=== PATIENT | female | born 1965 | race Caucasian/White ===

== ENCOUNTER → 2023-12-18 06:21 | Day surgery (SDC) | payer BC, SELFPAY | LOC: GI 06:21 | PROVIDERS: ATTENDING PHYSICIAN Internal Medicine Gastroenterology | DX: R13.10 Dysphagia, unspecified (principal); K44.9 Diaphragmatic hernia without obstruction or gangrene; K21.00 Gastro-esophageal reflux disease with esophagitis, without bleeding | CPT/HCPCS: 43239; 88305 ==

== ENCOUNTER 2024-02-24 22:12 | Emergency (ER) | payer BC, SELFPAY ==
[2024-02-24 22:19] VITALS: BP 153/89
[2024-02-24 22:32] LABS: % Basophils 0.3 % (0-2); % Eosinophils 1.2 % (0-6); % Immature Granulocytes 0.3 % (0-0.5); % Lymphocytes 39.9 % (20.5-51.1); % Monocytes 7.2 % (1.7-9.3); % Neutrophils 51.1 % (42.2-75.2); Absolute Eosinophils 0.1 10^3/uL (0-0.7); Absolute Lymphocytes 2.4 10^3/uL (1.2-3.4); Absolute Monocytes 0.4 10^3/uL (0.1-0.6); Absolute Neutrophils 3.1 10^3/uL (1.4-6.5); Hematocrit 34.9 % (37.0-47.0); Hemoglobin 12.3 g/dL (12.0-16.0); Mean Corp Hgb Conc. 35.2 g/dL (33.0-37.0); Mean Corpuscular Hgb 33.7 pg (27.0-31.0); Mean Corpuscular Volume 95.6 fL (81.0-99.0); Mean Platelet Volume 10.2 fL (7.4-10.4); Nucleated Red Blood Cells % 0 %; Platelet Count 197 10^3/uL (130-400); Red Blood Cell Count 3.65 10^6/uL (4.20-5.40); Red Cell Dist. Width 12.5 % (11.5-14.5)
[2024-02-24 22:49] LABS: ALT (SGPT) 13 U/L (0-35); AST (SGOT) 28 U/L (14-36); Albumin 4.9 g/dl (3.5-5.0); Alkaline Phosphatase 53 U/L (38-126); Blood Urea Nitrogen 9 mg/dl (7-17); Carbon Dioxide 26 mmol/L (22-30); Chloride 99 mmol/L (98-107); Glucose 103 mg/dl (70-99); Potassium 4.3 mmol/L (3.5-5.1); Sodium 137 mmol/L (135-145); Total Bilirubin 1.2 mg/dl (0.2-1.3); Total Protein 7.4 g/dl (6.3-8.2); eGFR > 60.00
--- NOTE | 2024-02-24 23:56 | ED.GENMED ---
History of Present Illness
General
Chief Complaint: Dental Problem
Source: patient and spouse
Exam Limitations: none
Time Seen by Provider: 02/24/24 23:36
Nursing documentation reviewed up to this point in time: agreed with
Travel History
Have you had any contact with someone who has COVID-19?: No
Do you have any symptoms of coronavirus? Fever > 100 degrees, chills, cough, shortness of breath, sore throat, loss of taste or smell, muscle aches, or headache?: No
History of Present Illness
History of Present Illness:
This is a 58-year-old woman states she underwent right lower molar dental surgery January 23. She believes she had a filling removed and then replaced. Despite dental surgery she continued with moderate focal pain along with local swelling and bruising
to her right mandible region. Swelling and bruising resolved but she has continued with some focal discomfort causing her to persistently chew on her left side. Tonight however she became concerned when she noticed firm focal painful swelling
medial mandible region of her right lower molars. She denies tongue swelling, denies neck pain nor sore throat, no difficulty swallowing. She has not had a fever nor chills. She denies headache.
She has a scheduled follow-up appointment with a dentist on Thursday, in 2 days time.
Past History
Past History
ED Past Medical History: Cancer (Colon cancer), GERD (Small hiatal hernia noted on upper endoscopy November 2023), Hypercholesterolemia, Psychiatric (Anxiety) and Other (Tension headaches)
ED Past Surgical History: Bowel resection (Colon resection) and Other (Hernia repair)
Social History
Tobacco: Non-smoker
Alcohol: Occasional
Drug: None
Personal:
Living: with family
Employment: Employed
Family History
Family History: Negative Early CAD or Sudden
Phy Exam
Physical Exam
Physical Exam:
GENERAL: 58-year-old woman appears her stated age, awake and alert, pleasant, mildly anxious but easily communicative. is accompanying. Afebrile. Mild systolic hypertension noted.
EYE: pupils equal and reactive. anicteric
NECK: Supple, nontender, no meningismus, no significant adenopathy.
ENT: posterior pharynx is clear, oral mucosa is moist. Tongue is midline and without edema, no sublingual edema. There are intact dental fillings within tooth #31 and 29 and an occlusive intact dental cap encompasing tooth #30. There is no focal
dental tenderness to palpation. There is note of a tiny bilobed firm, pink-colored nodule along the lingual gingiva just inferior to molar #29. This focal firm nodule is mildly to moderately tender to palpation. There is no fluctuance, no
surrounding edema, no erythema. There is no buccal mucosal gingival edema nor erythema nor tenderness. TM clear b/l, nares patent. There is no facial edema nor erythema nor soft tissue swelling nor ecchymosis. No facial tenderness to palpation.
CARDIAC: Regular rate and rhythm. no murmur.
LUNGS: Clear breath sounds bilaterally, no acute respiratory distress, no wheezes/rales/rhonchi
ABDOMEN: Soft, nondistended, without focal tenderness
NEUROLOGICAL: Alert and oriented x3, no focal neuro deficits. Gait is jensen and steady.
SKIN: Warm and dry, normal color, skin intact. No rash.
MUSCULOSKELETAL: No C/C/E. peripheral pulses are full and equal b/l. No palpable tenderness.
PSYCH: Normal and appropriate interaction.
Course
Orders/Labs/Results
Orders:
Orders
02/24/24 22:24
Complete Blood Count/With Diff Urgent
Comprehensive Metabolic Panel Urgent
02/24/24 23:55
Amoxicillin 875 mg/Clav 125 mg [Augmentin 875 mg/125 mg] 1 tablet PO NOW STA
Ibuprofen [Motrin] 800 mg PO NOW STA
Abnormal Lab Results
02/24/24
22:24
RBC 3.65 L 10^6/uL
(4.20-5.40)
Hct 34.9 L %
(37.0-47.0)
MCH 33.7 H pg
(27.0-31.0)
Glucose 103 H mg/dl
(70-99)
02/24/24 22:24
02/24/24 22:24
Vital Signs
Initial and Last Documented VS:
Initial Vital Signs
Temp Pulse Resp BP Pulse Ox
97.9 F 66 18 153/89 99
02/24/24 22:19 02/24/24 22:19 02/24/24 22:19 02/24/24 22:19 02/24/24 22:19
Last Documented Vital Signs
Temp Pulse Resp BP Pulse Ox
97.9 F 66 18 153/89 99
02/24/24 22:19 02/24/24 22:19 02/24/24 22:19 02/24/24 22:19 02/24/24 22:19
MDM/Problems Addressed
Differential Diagnosis Includes:
Patient presents with ongoing right mandibular dental pain after right mandibular dental procedure 1 month ago.
She does admit that local mandibular swelling, bruising has resolved but she recently noticed a firm tender nodule lingular aspect of the gingiva at molar #29.
There is no evidence of dental caries nor focal dental tenderness but this firm nodule is somewhat tender to palpation. This may be early abscess versus bony dental growth in nature.
She has a follow-up appointment scheduled with dentist in 2 days time.
There is no surrounding erythema nor soft tissue swelling, no adenopathy and she is afebrile and reports no current fever.
Will treat with a course of antibiotic for potential occult dental infection and will add ibuprofen for pain.
Recommend supportive measures, cool compresses, elevating head of bed, soft diet.
Prompt follow-up with dentist as already scheduled.
*Pulse Oximetry
Patient hypoxic: no
*Critical Care Note
Total Time (30-74mins, 75-104mins- exclusive of procedures): Not Applicable
ED Attending Note
-
Portions of this chart may have been created with voice recognition software.� Occasional wrong word or��sound alike� substitutions may have occurred due to the inherent limitations of voice recognition software.
Discharge Plan
Departure
Patient Disposition: Home (Routine Discharge)
Date of Disposition: 02/24/24
Time of Disposition: 23:56
Patient with high blood pressure during this ER visit?: Yes
Condition: Good
Discharge Problem:
Dentalgia, concern for dental abscess
Instructions: Dental Pain (DC), BLOOD PRESSURE
Prescriptions:
New
ibuprofen 600 mg tablet
600 mg PO QID PRN (Reason: fever or pain) Qty: 20 0RF
amoxicillin-pot clavulanate 875-125 mg tablet
1 tab PO BID Qty: 14 0RF
No Action
hydrocodone-acetaminophen 1 TABLET tablet
1 tab PO Q4HPRN PRN (Reason: pain) Qty: 20 0RF
Rx Instructions:
may increase to 2 q 4h for severe pain
promethazine 25 MG tablet
25 mg PO Q6HPRN PRN (Reason: headache and nausea) Qty: 15 0RF
Referrals:
Dante Dc I., DO [Family Provider] -
Activity Restrictions/Additional Instructions:
Continue soft foods.
Elevate head of bed on a few extra pillows when sleeping
follow up with your dentist on Thursday as scheduled.
Interventions
Interventions:
*Risk Screen - Suicide Last Done: 02/25/24 00:07
*General Assessment Last Done: 02/25/24 00:07
*Neglect/Abuse Screening Last Done: 02/25/24 00:07
ED- Fall Risk Assessment Last Done: 02/25/24 00:07
*ED COVID-19 Vaccine History Last Done: 02/25/24 00:07
*Nursing Disposition Last Done: 02/25/24 00:07
Discharge Date and Time
Discharge Date/Time: 02/25/24 00:07
Print Language: CITIZEN OF [place]
[2024-02-25] MEDS: MOTRIN 800 MG PO (00:03)
[2024-02-25] MEDS: AUGMENTIN 875 MG/125 MG 1 TABLET PO (00:04)
== END 2024-02-25 00:07 | disposition home or self-care (01) ==
LOC: EMR 22:12
PROVIDERS: Emergency Medicine; EMERGENCY PHYSICIAN Emergency Medicine; FAMILY PHYSICIAN Internal Medicine
DX: K08.89 Other specified disorders of teeth and supporting structures (principal); R22.0 Localized swelling, mass and lump, head; S00.83XA Contusion of other part of head, initial encounter; X58.XXXA Exposure to other specified factors, initial encounter; R03.0 Elevated blood-pressure reading, without diagnosis of hypertension; K21.9 Gastro-esophageal reflux disease without esophagitis; E78.00 Pure hypercholesterolemia, unspecified; K44.9 Diaphragmatic hernia without obstruction or gangrene; F41.9 Anxiety disorder, unspecified; Z85.038 Personal history of other malignant neoplasm of large intestine; Z98.890 Other specified postprocedural states; Z98.0 Intestinal bypass and anastomosis status
CPT/HCPCS: 99283; 80053; 85025

== ENCOUNTER → 2024-06-09 12:25 | Outpatient (REF) | payer BC, SELFPAY | LOC: HWWDC 12:25 | PROVIDERS: ATTENDING PHYSICIAN Internal Medicine; FAMILY PHYSICIAN Nurse Practitioner Adult Health; REFERRING PHYSICIAN Obstetrics & Gynecology | DX: Z12.31 Encounter for screening mammogram for malignant neoplasm of breast (principal) | CPT/HCPCS: 77061; 77065 ==

== ENCOUNTER → 2024-07-08 08:20 | Outpatient (REF) | payer BC, SELFPAY | LOC: HWRAD 08:20 | PROVIDERS: ATTENDING PHYSICIAN Obstetrics & Gynecology; FAMILY PHYSICIAN Internal Medicine | DX: N95.0 Postmenopausal bleeding (principal) | CPT/HCPCS: 76830; 76856 ==

== ENCOUNTER → 2024-07-22 09:21 | Outpatient (REF) | payer BC, SELFPAY | LOC: RCS 09:21 | PROVIDERS: ATTENDING PHYSICIAN Internal Medicine Cardiovascular Disease; FAMILY PHYSICIAN Internal Medicine | DX: R06.09 Other forms of dyspnea (principal) | CPT/HCPCS: 93017; 93350 ==

== ENCOUNTER → 2024-08-04 07:25 | Outpatient (REF) | payer BC, SELFPAY | LOC: RAD 07:25 | PROVIDERS: ATTENDING PHYSICIAN Nurse Practitioner Family; FAMILY PHYSICIAN Internal Medicine; REFERRING PHYSICIAN Obstetrics & Gynecology | DX: R35.0 Frequency of micturition (principal) | CPT/HCPCS: 76770 ==

== ENCOUNTER → 2024-09-08 07:35 | Outpatient (REF) | payer BC, SELFPAY | LOC: HWWDC 07:35 | PROVIDERS: ATTENDING PHYSICIAN Obstetrics & Gynecology; FAMILY PHYSICIAN Nurse Practitioner Adult Health | DX: Z78.0 Asymptomatic menopausal state (principal); Z12.31 Encounter for screening mammogram for malignant neoplasm of breast | CPT/HCPCS: 77063; 77067; 77080 ==

== ENCOUNTER → 2025-04-20 07:40 | Outpatient (REF) | payer BC, SELFPAY ==
[2025-04-20 09:04] LABS: Hematocrit 39.3 % (37.0-47.0); Hemoglobin 13.3 g/dL (12.0-16.0); Mean Corp Hgb Conc. 33.8 g/dL (33.0-37.0); Mean Corpuscular Volume 97.0 fL (81.0-99.0); Nucleated Red Blood Cells % 0 %; Platelet Count 203 10^3/uL (130-400); Red Cell Dist. Width 12.2 % (11.5-14.5)
[2025-04-20 10:33] LABS: ALT (SGPT) 12 U/L (0-35); AST (SGOT) 20 U/L (14-36); Albumin 4.6 g/dl (3.5-5.0); Alkaline Phosphatase 44 U/L (38-126); Blood Urea Nitrogen 15 mg/dl (7-17); Calcium 9.4 mg/dl (8.4-10.2); Carbon Dioxide 28 mmol/L (22-30); Chloride 106 mmol/L (98-107); Glucose 90 mg/dl (70-99); HDL Cholesterol 72 mg/dl; LDL Cholesterol, Calculated 117 mg/dl; Potassium 4.6 mmol/L (3.5-5.1); Sodium 141 mmol/L (135-145); Total Protein 6.9 g/dl (6.3-8.2); Very Low Density Lipoprotein 9 mg/dl (0-30); eGFR > 60.00
== END ==
LOC: REG 07:40
PROVIDERS: ATTENDING PHYSICIAN Nurse Practitioner Adult Health
DX: Z00.00 Encounter for general adult medical examination without abnormal findings (principal)
CPT/HCPCS: 36415; 80053; 80061; 84443; 85025

== ENCOUNTER → 2025-09-12 07:05 | Outpatient (REF) | payer BC, SELFPAY ==
[2025-09-12 08:11] LABS: Blood Urea Nitrogen 11 mg/dl (7-17); Calcium 9.0 mg/dl (8.4-10.2); Carbon Dioxide 28 mmol/L (22-30); Chloride 99 mmol/L (98-107); Glucose 87 mg/dl (70-99); Potassium 4.1 mmol/L (3.5-5.1); Sodium 135 mmol/L (135-145); eGFR > 60.00
== END ==
LOC: REG 07:05
PROVIDERS: ATTENDING PHYSICIAN Student in an Organized Health Care Education/Training Program; FAMILY PHYSICIAN Nurse Practitioner Adult Health
DX: Z12.31 Encounter for screening mammogram for malignant neoplasm of breast (principal); R10.31 Right lower quadrant pain; Z98.890 Other specified postprocedural states; Z87.19 Personal history of other diseases of the digestive system
CPT/HCPCS: 36415; 80048

== ENCOUNTER → 2025-09-13 10:54 | Outpatient (REF) | payer BC, SELFPAY | LOC: WDC 10:54 | PROVIDERS: ATTENDING PHYSICIAN Student in an Organized Health Care Education/Training Program; FAMILY PHYSICIAN Nurse Practitioner Adult Health | DX: Z12.31 Encounter for screening mammogram for malignant neoplasm of breast (principal); R10.31 Right lower quadrant pain; Z98.890 Other specified postprocedural states; Z87.19 Personal history of other diseases of the digestive system | CPT/HCPCS: 77063; 77067 ==

== ENCOUNTER → 2025-09-18 11:45 | Outpatient (REF) | payer BC, SELFPAY | LOC: RAD 11:45 | PROVIDERS: ATTENDING PHYSICIAN Nurse Practitioner Adult Health | DX: R10.31 Right lower quadrant pain (principal); Z98.890 Other specified postprocedural states; Z87.19 Personal history of other diseases of the digestive system | CPT/HCPCS: 74177; Q9967 ==